=== PATIENT | male | born 1945 | race American Indian/Alaskan Native ===

== ENCOUNTER 2018-11-05 11:36 | Emergency (ER) | payer MEDICARE ==
[2018-11-05 12:02] VITALS: TEMP 98.2
[2018-11-05] MEDS ORDERED: Sodium Chloride 0.9% 1,000 ML IV STA (13:09)
--- NOTE | 2018-11-05 13:25 | ED PDOC ---
Arrival/HPI - General Chief Complaint: Dizziness/Lightheaded Historian: Patient - History of Present Illness Narrative History of Present Illness (Text): 11/05/18 13:15 72 year old M presents with chief complaint of dizziness since this morning and right upper extremity weakness [id number]. Patient reports feeling dizzy while cooking and lost use of his right upper extremity while participating in strenuous activity this morning. He denies any fall, trauma, or LOC. Patient mentions swelling on his right hand radiating to his fingers. He recalls presenting to the [facility] [place] 2 weeks ago with similar symptoms, having an inpatient MRI and CAT showing negative results, and discharged with tylenol. Patient denies any fevers, chills, headache, dizziness, chest pain, shortness of breath, dyspnea on exertion, cough, abdominal pain, nausea, vomiting, diarrhea, back pain, neck pain, or any other complaint. Symptom Onset: Sudden Symptom Course: Unchanged Activities at Onset: Significant Context: Home Past Medical History - Provider Review Nursing Documentation Reviewed: Yes Primary Care Physician: William Glasgow - Infectious Disease Hx of Infectious Diseases: None - Cardiac Hx Cardiac Disorders: Yes Hx Hypertension: Yes - Pulmonary Hx Respiratory Disorders: No - Neurological Hx Neurological Disorder: Yes HX Cerebrovascular Accident: Yes (CVA last week) Hx Dizziness: Yes - HEENT Hx HEENT Disorder: No - Renal Hx Renal Disorder: No - Endocrine/Metabolic Hx Endocrine Disorders: No - Hematological/Oncological Hx Blood Disorders: No - Integumentary Hx Dermatological Disorder: No - Musculoskeletal/Rheumatological Hx Musculoskeletal Disorders: No - Gastrointestinal Hx Gastrointestinal Disorders: No - Genitourinary/Gynecological Hx Genitourinary Disorders: No - Psychiatric Hx Psychophysiologic Disorder: No Hx Substance Use: No - Anesthesia Hx Anesthesia: No Hx Anesthesia Reactions: No Hx Malignant Hyperthermia: No - Suicidal Assessment Feels Threatened In Home Enviroment: No Family/Social History - Physician Review Nursing Documentation Reviewed: Yes Family/Social History: Unknown Family HX Smoking Status: Heavy Smoker > 10 Cigarettes Daily Hx Alcohol Use: No Hx Substance Use: No Allergies/Home Meds Allergies/Adverse Reactions: Allergies No Known Allergies Allergy (Unverified 03/18/14 22:00) Home Medications: Home Meds Medication Instructions Recorded Confirmed Aldomet 500 DAILY 03/18/14 03/18/14 Exforge 10 mg-320 mg DAILY 03/18/14 03/18/14 Gabapentin 100 Q8 03/18/14 03/18/14 Klor-Con 10 10 DAILY 03/18/14 03/18/14 Lasix 40 DAILY 03/18/14 03/18/14 Naproxen 500 DAILY 03/18/14 03/18/14 Omeprazole 20 DAILY 03/18/14 03/18/14 Review of Systems - Physician Review All systems were reviewed & negative as marked: Yes - Review of Systems Constitutional: absent: Fatigue, Fevers ENT: absent: Sore Throat, Rhinorrhea Respiratory: absent: SOB, Cough, Wheezing Cardiovascular: absent: Chest Pain Gastrointestinal: absent: Abdominal Pain, Diarrhea, Nausea, Vomiting Genitourinary Male: absent: Dysuria Musculoskeletal: absent: Arthralgias, Back Pain Neurological: Dizziness, Other (right upper extremity weakness). absent: Headache, Speech Changes, Facial Droop Physical Exam Vital Signs Reviewed: Yes Vital Signs Temp Pulse Resp BP Pulse Ox 11/05/18 12:01 98.2 F 81 19 128/90 98 11/05/18 11:36 98.2 F 83 18 128/90 96 Temperature: Afebrile Blood Pressure: Normal Pulse: Regular Respiratory Rate: Normal Appearance: Positive for: Well-Appearing, Non-Toxic, Comfortable Pain Distress: None Mental Status: Positive for: Alert and Oriented X 3 - Systems Exam Head: Present: Atraumatic, Normocephalic Pupils: Present: PERRL Extroacular Muscles: Present: EOMI Conjunctiva: Present: Normal Mouth: Present: Moist Mucous Membranes Neck: Present: Normal Range of Motion Respiratory/Chest: Present: Clear to Auscultation, Good Air Exchange. No: Respiratory Distress, Accessory Muscle Use Cardiovascular: Present: Regular Rate and Rhythm, Normal S1, S2. No: Murmurs Abdomen: Present: Distention. No: Tenderness, Peritoneal Signs, Rebound Back: Present: Normal Inspection Upper Extremity: Present: Swelling (right hand and fingers), Neurovascularly Intact, Other. No: Cyanosis, Edema, Normal ROM Lower Extremity: Present: Normal Inspection. No: Edema Neurological: Present: GCS=15, CN II-XII Intact, Speech Normal, Motor Func Grossly Intact, Normal Sensory Function Skin: Present: Warm, Dry, Normal Color. No: Rashes Psychiatric: Present: Alert, Oriented x 3, Normal Insight, Normal Concentration Medical Decision Making ED Course and Treatment: 11/05/18 13:25 Impression: 72 year old M presents with chief complaint of dizziness since this morning and right upper extremity weakness [id number]. Patient reports feeling dizzy while cooking and lost use of his right upper extremity while participating in strenuous activity this morning. He denies any fall, trauma, or LOC. Patient mentions swelling on his right hand radiating to his fingers. He recalls presenting to the [facility] [place] 2 weeks ago with similar symptoms, having an inpatient MRI and CAT showing negative results, and discharged with Tylenol. Plan: -- CT Head w/o contrast -- EKG -- Labs -- Ultra sound duplex upper extremity -- Reassess and disposition Prior Visits: Notes and results from previous visits were reviewed. Patient was last seen in the emergency department on Progress Notes: - RAD Interpretation Narrative RAD Interpretations (Text): 11/05/18 14:[address] No acute intracranial findings 11/05/18 14:44 Extremity Ultrasound No sonographic evidence for deep venous thrombosis in the visualized segments of the right upper extremity. Radiology Orders: 11/05/18 13:08 HEAD W/O CONTRAST [CT] Stat DUPLEX UPPER EXTRM VEIN RIGHT [US] Stat Correspondence Section Supervisor: ED Physician - EKG Interpretation EKG Interpretation (Text): 11/05/18 11:48 NSR @ [address] elevations. No T wave inversions. Interpreted by ED Physician: Yes Type: 12 lead EKG - Medication Orders Current Medication Orders: Sodium Chloride (Sodium Chloride 0.9%) 1,000 mls @ 999 mls/hr IV .Q1H1M STA Stop: 11/05/18 14:09 - Scribe Statement The provider has reviewed the documentation as recorded by the Suzanna Bermudez All medical record entries made by the Suzanna were at my direction and personally dictated by me. I have reviewed the chart and agree that the record accurately reflects my personal performance of the history, physical exam, medical decision making, and the department course for this patient. I have also personally directed, reviewed, and agree with the discharge instructions and disposition. Disposition/Present on Arrival - Present on Arrival Any Indicators Present on Arrival: No History of DVT/PE: No History of Uncontrolled Diabetes: No Urinary Catheter: No History of Decub. Ulcer: No History Surgical Site Infection Following: None - Disposition Have Diagnosis and Disposition been Completed?: Yes Diagnosis: Vertigo, Hand swelling Disposition: HOME/ ROUTINE Disposition Time: 15:30 Patient Plan: Discharge Condition: IMPROVED Discharge Instructions (ExitCare): Vertigo (a Type of Dizziness) (DC) Print Language: GEORGIAN Additional Instructions: All medical record entries made by the Scribe were at my direction and personally dictated by me. I have reviewed the chart and agree that the record accurately reflects my personal performance of the history, physical exam, medical decision making, and the department course for this patient. I have also personally directed, reviewed, and agree with the discharge instructions and disposition. Please follow up with your PCP ion 1 week Please try to schedule an appointment with the neurologist in your paperwork Prescriptions: Metoclopramide HCl [Reglan] 10 mg PO Q6 #10 tablet Referrals: William Glasgow MD [Primary Care Provider] - Follow up with primary Erik Franco MD [Staff Provider] - Follow up with primary Forms: [employer] ([place])
--- NOTE | 2018-11-05 13:51 | CT ---
Date of service: 11/05/2018 PROCEDURE: CT HEAD WITHOUT CONTRAST. HISTORY: headache COMPARISON: None available. TECHNIQUE: Axial computed tomography images were obtained through the head/brain without intravenous contrast. Radiation dose: Total exam DLP = 917.08 mGy-cm. This CT exam was performed using one or more of the following dose reduction techniques: Automated exposure control, adjustment of the mA and/or kV according to patient size, and/or use of iterative reconstruction technique. FINDINGS: HEMORRHAGE: No intracranial hemorrhage. BRAIN: No mass effect or edema. Severe chronic microvascular changes in the deep white matter. VENTRICLES: Unremarkable. No hydrocephalus. CALVARIUM: Unremarkable. PARANASAL SINUSES: Unremarkable as visualized. No significant inflammatory changes. MASTOID AIR CELLS: Unremarkable as visualized. No inflammatory changes. OTHER FINDINGS: None. IMPRESSION: No acute intracranial findings
--- NOTE | 2018-11-05 14:10 | US ---
PROCEDURE: Right upper extremity venous US CLINICAL HISTORY: Arm pain and swelling Evaluate for deep venous thrombosis. PHYSICIAN(S): Jony Huggins M.D FINDINGS: The visualized rightinternal jugular vein is sonographically normal and compressible. No evidence of obstruction or thrombus is seen. The visualized segments of the right subclavian vein are patent with normal waveforms. No sonographic evidence of obstruction or thrombosis is seen. The visualized deep venous system of the proximal right upper extremity is sonographically normal and compressible. IMPRESSION: 1. No sonographic evidence for deep venous thrombosis in the visualized segments of the right upper extremity.
[2018-11-05 14:36] LABS: BASO # 0.02 K/mm3 (0.0-2.0); BASO % 0.2 % (0.0-3.0); EOS # 0.3 (0.0-0.7); EOS % 3.1 % (1.5-5.0); HEMOGLOBIN 12.6 g/dL (14.0-18.0); LYMPH # 2.2 (1.2-3.4); LYMPH % 24.6 % (22.0-35.0); MEAN CELL VOLUME 87.8 fl (80.0-105.0); MEAN CORPUSCULAR HEMOGLOBIN 29.5 pg (25.0-35.0); MEAN CORPUSCULAR HGB CONC 33.6 g/dl (31.0-37.0); MEAN PLATELET VOLUME 9.2 fl (7.0-11.0); MONO # 0.6 (0.1-0.6); MONO % 6.6 % (1.0-6.0); RBC 4.27 10^6/uL (3.5-6.1); RED CELL DISTRIBUTION WIDTH 15.2 % (11.5-14.5)
[2018-11-05 14:47] LABS: ALB/GLOB RATIO 1.2 (1.1-1.8); ALBUMIN 4.6 g/dL (3.0-4.8); CALCIUM 9.9 mg/dL (8.4-10.5)
[2018-11-05 14:55] LABS: INR 1.08; PARTIAL THROMBOPLASTIN TIME 41.2 Seconds (26.9-38.3)
[2018-11-05 15:42] VITALS: BP 139/84; PULSE 67; RESP 18; O2SAT 96
--- NOTE | 2018-11-05 16:46 | CARD ---
APPROVED REPORT Date of service: 11/05/2018 EKG Measurement Heart [id number] <Conclusion> Normal sinus rhythm Normal ECG
== END 2018-11-05 15:43 | disposition home or self-care (01) ==
LOC: ED 11:36
DX: R42 Dizziness and giddiness (principal); M79.89 Other specified soft tissue disorders; F17.210 Nicotine dependence, cigarettes, uncomplicated
CPT/HCPCS: 70450; 80053; 83690; 83735; 85025; 85610; 85730; 93005; 93971; 99285; J7030